=== PATIENT | male | born 2005 | race Caucasian/White ===

== ENCOUNTER 2024-10-07 15:07 | Emergency (ER) | payer OTHER ==
--- NOTE | 2024-10-07 15:28 | ERPHSYRPT ---
- History of Present Illness Time Seen by Provider: 10/07/24 15:28 Historian: patient, family Exam Limitations: no limitations Physician History: This is a 19-year-old white male patient arrives by private vehicle accompanied by his spouse because of the complaint of abdominal pain on the left side of his abdomen for 3 to 4 weeks. Patient states that he was seen at [facility] and told he had "blockages". He continues to have the left-sided abdominal pain. Patient has appointment to see mail clerk in November 2024. Patient has no chest pain. He is not short of breath Timing/Duration: week(s) (3 to 4 weeks), other (Symptoms persistent) Quality: aching Abdominal Pain Onset Location: LUQ, LLQ Pain Radiation: no radiation Severity of Pain-Max: moderate Severity of Pain-Current: moderate Modifying Factors: Improves With: nothing Associated Symptoms: denies symptoms Previous symptoms: same symptoms as today, recently seen, no recent treatment Allergies/Adverse Reactions: ondansetron [From Zofran] Allergy (Verified 10/07/24 15:34) Home Medications: No Reportable Medications [No Reported Medications] 10/07/24 [History] Travel Risk - International Travel Have you traveled outside of the country in past 3 weeks: No - Emerging Infectious Disease Are you exhibiting symptoms associated with any current EIDs: No - Review of Systems Constitutional: No Symptoms Eyes: No Symptoms Ears, Nose, & Throat: No Symptoms Respiratory: No Symptoms Cardiac: No Symptoms Abdominal/Gastrointestinal: Abdominal Pain Genitourinary Symptoms: No Symptoms Musculoskeletal: No Symptoms Skin: No Symptoms Neurological: No Symptoms Psychological: No Symptoms Endocrine: No Symptoms Hematologic/Lymphatic: No Symptoms Immunological/Allergic: No Symptoms All Other Systems: Reviewed and Negative - Past Medical History Pertinent Past Medical History: No - Nursing Vital Signs Nursing Vital Signs: Initial Vital Signs Temperature 96.7 F 10/07/24 15:22 Pulse Rate 97 H 10/07/24 15:22 Blood Pressure 138/92 10/07/24 15:22 O2 Sat by Pulse Oximetry 98 10/07/24 15:22 Pain Scale Pain Intensity 0 - Physical Exam General Appearance: no apparent distress, alert, anxiety Eye Exam: PERRL/EOMI, eyes nml inspection Ears, Nose, Throat Exam: normal ENT inspection, moist mucous membranes Neck Exam: normal inspection, non-tender, supple, full range of motion Respiratory Exam: normal breath sounds, lungs clear, airway intact, No chest tenderness, No respiratory distress Cardiovascular Exam: regular rate/rhythm, normal heart sounds, normal peripheral pulses Gastrointestinal/Abdomen Exam: soft, normal bowel sounds, tenderness (Left side to palpation), guarding (Left side to palpation) Rectal Exam: not done Back Exam: normal inspection, normal range of motion, No CVA tenderness, No vertebral tenderness Extremity Exam: normal inspection, normal range of motion, pelvis stable Neurologic Exam: alert, oriented x 3, cooperative, central office frame wirer II-XII nml as tested, nml cerebellar function, nml station & gait, sensation nml Skin Exam: normal color, warm, dry Lymphatic Exam: No adenopathy SpO2 Interpretation: normal O2 Delivery: Room Air Ordered Tests: Active Orders 24 hr Category Date Time Status IV Insertion STAT Care 10/07/24 16:22 Active ABDOMEN AND PELVIS W/0 CONTRAS [CT] Stat Exams 10/07/24 16:22 Completed AMYLASE Stat Lab 10/07/24 17:20 Completed CBC W DIFF Stat Lab 10/07/24 17:20 Completed CMP Stat Lab 10/07/24 17:20 Completed LIPASE Stat Lab 10/07/24 17:20 Completed UA W/RFX UR CULTURE Stat Lab 10/07/24 16:56 Completed Lab/Rad Data: Laboratory Result Diagrams 10/07/24 17:20 10/07/24 17:20 Laboratory Results 10/07/24 10/07/24 10/07/24 Range/Units 17:20 17:20 16:56 WBC 7.9 (4.23-9.07) x10^3/uL RBC 4.88 (4.63-6.08) x10^6/uL Hgb 15.1 (13.7-17.5) g/dL Hct 42.7 (40.1-51.0) % MCV 87.5 (79.0-92.2) fL MCH 30.9 (25.7-32.2) pg MCHC 35.4 (32.3-36.5) g/dL RDW 12.4 (11.6-14.4) % Plt Count 281 (163-337) x10^3/uL MPV 9.9 (9.4-12.4) fL Gran % 57.8 (34.0-67.9) % Immature Gran % (Auto) 0.4 (0.001-0.429) % Nucleat RBC Rel Count 0.0 (0.00-0.2) % Eos # (Auto) 0.18 (0.04-0.54) x10^3/uL Immature Gran # (Auto) 0.03 (0.001-0.031) x10^3u/L Absolute Lymphs (auto) 2.15 (1.32-3.57) x10^3/uL Absolute Monos (auto) 0.95 H (0.30-0.82) x10^3/uL Absolute Nucleated RBC 0.00 (0.00-0.012) x10^3u/L Lymphocytes % 27.1 (21.8-53.1) % Monocytes % 12.0 (5.3-12.2) % Eosinophils % 2.3 (0.8-7.0) % Basophils % 0.4 (0.2-1.2) % Absolute Granulocytes 4.58 (1.78-5.38) x10^3/uL Basophils # 0.03 (0.01-0.08) x10^3/uL Sodium 139 (135-145) mmol/L Potassium 3.7 (3.5-5.1) mmol/L Chloride 102 (98-107) mmol/L Carbon Dioxide 26 (22-30) mmol/L Anion Gap 14.3 (5-15) MEQ/L BUN 13 (9-20) mg/dL Creatinine 0.80 (0.66-1.25) mg/dL Estimated GFR 129.1 ML/MIN Glucose 89 (74-106) mg/dL Calcium 9.2 (8.4-10.2) mg/dL Total Bilirubin 0.50 (0.2-1.3) mg/dL AST 54 (17-59) U/L ALT 115 H (0-50) U/L Alkaline Phosphatase 40 (38-126) U/L Serum Total Protein 7.6 (6.3-8.2) g/dL Albumin 4.7 (3.5-5.0) g/dL Amylase 45 (30-110) U/L Lipase 38 (23-300) U/L Urine Color Yellow (Yellow) Urine Appearance Clear (Clear) Urine pH 5.5 (4.6-8.0) Ur Specific [place] >=1.030 A (1.005-1.030) Urine Protein Trace A (Negative) Urine Glucose (UA) Negative (Negative) mg/dL Urine Ketones Negative (Negative) Urine Blood Negative (Negative) Urine Nitrite Negative (Negative) Urine Bilirubin Negative (Negative) Urine Urobilinogen 1.0 A (0.2) mg/dL Ur Leukocyte Esterase Negative (Negative) U Hyaline Cast (Auto) NONE SEEN (0-2) /LPF Urine Microscopic RBC 0-2 (0-5) /HPF Urine Microscopic WBC 0-2 (0-5) /HPF Ur Epithelial Cells None Seen (None Seen) /HPF Urine Bacteria None Seen (None Seen) /HPF Urine Culture Reflexed NO (NO) - Progress Progress: pain not gone completely, re-examined Progress Note: 10/07/24 16:42 My medical decision making of the assignment of moderate complexity to this patient's medical issue today is based on review of the patient's past medical history, review of the patient's medication list, reviewed patient drug allergy list, history present illness and physical findings on examination. The workup in this patient includes placement of intravenous line, CBC, CMP, amylase, lipase, urinalysis, CT scan of the abdomen pelvis without contrast. Differential diagnosis includes but is not limited to pancreatitis, pyelonephritis, ureterolithiasis, colitis, abdominal wall pain 10/07/24 18:08 I interpreted the patient's laboratory data results. Based on the laboratory data results, there are no acute, emergent medical issues. The CT scan of the abdomen and pelvis without contrast was interpreted by the radiologist and I reviewed the impression. The impression states mid abdomen mesenteric adenitis. There is normal appendix. No free air and no free fluid Counseled pt/family regarding: lab results, diagnosis, need for follow-up, rad results Medical Desision Making - Independent Historian Additional History obtained from: Spouse - Diagnostic Testing Diagnostic test were ordered, analyzed, and reviewed by me: Yes Radiological Interpretation: Reviewed by me, Teleradiologist Report - Risk of complications Minimal Risk: Minimal risk of morbidity - Departure Departure Disposition: Home Clinical Impression: Mesenteric adenitis Condition: Stable Critical Care Time: No Referrals: DOCTOR,NO FAMILY [Primary Care Provider] - Follow up/PCP as directed Additional Instructions: Drink plenty of fluids. Use Tylenol and ibuprofen for pain control. Keep your appointment with your mail clerk in November 2024. Call your primary care provider on 10/10/2024, to make arrangements for follow-up appointment for further evaluation and management.
[2024-10-07 15:34] VITALS: TEMP 96.7
[2024-10-07 17:05] VITALS: PULSE 92; RESP 18
--- NOTE | 2024-10-07 17:16 | XRAY ---
Indication: Left abdominal pain 3-4 weeks. Multiple contiguous axial images obtained through abdomen and pelvis without contrast. Comparison: None Lung bases clear. Heart not enlarged. Stomach is distended with food/fluid. Noncontrasted stomach and bowel loops appear nonobstructed with normal appendix. Spleen is enlarged measuring 15.4 cm. Several centimeter/subcentimeter mid abdomen mesenteric nodes, favoring adenitis. No free fluid/air. Remaining liver, gallbladder, pancreas, spleen, adrenal glands, kidneys, ureters, bladder, and aorta are unremarkable for noncontrast exam. Osseous structures intact. Impression: Midabdomen mesenteric adenitis. Splenomegaly. Remaining CT abdomen/pelvis without contrast exam is negative.
[2024-10-07 17:23] LABS: Absolute Neutrophil Ct (ANC) 4.58 x10^3/uL (1.78-5.38); BASOPHIL % 0.4 % (0.2-1.2); Basophil (Absolute #) 0.03 x10^3/uL (0.01-0.08); Eosinophil % 2.3 % (0.8-7.0); Eosinophil (Absolute #) 0.18 x10^3/uL (0.04-0.54); Hematocrit 42.7 % (40.1-51.0); Hemoglobin 15.1 g/dL (13.7-17.5); IMMATURE GRAN # 0.03 x10^3u/L (0.001-0.031); IMMATURE GRAN % 0.4 % (0.001-0.429); Lymphocyte (Absolute #) 2.15 x10^3/uL (1.32-3.57); Lymphocytes % 27.1 % (21.8-53.1); Mean Cell Volume 87.5 fL (79.0-92.2); Mean Corpuscular Hemoglobin 30.9 pg (25.7-32.2); Mean Corpuscular Hgb Concent. 35.4 g/dL (32.3-36.5); Mean Platelet Volume 9.9 fL (9.4-12.4); Monocyte (Absolute #) 0.95 x10^3/uL (0.30-0.82); Neutrophil % 57.8 % (34.0-67.9); Platelet Count 281 x10^3/uL (163-337); Red Blood Count 4.88 x10^6/uL (4.63-6.08); Red Cell Distribution Width 12.4 % (11.6-14.4); White Blood Count 7.9 x10^3/uL (4.23-9.07)
[2024-10-07 17:38] LABS: ALBUMIN 4.7 g/dL (3.5-5.0); ANION GAP 14.3 MEQ/L (5-15); BILIRUBIN,TOTAL 0.5 mg/dL (0.2-1.3); Calcium 9.2 mg/dL (8.4-10.2); Creatinine 1 0.8 mg/dL (0.66-1.25); EST GLOMERULAR FILTRATION RATE 129.1 ML/MIN; Potassium 3.7 mmol/L (3.5-5.1); Total Protein 7.6 g/dL (6.3-8.2)
[2024-10-07 17:50] LABS: Appearance Clear (Clear); Bacteria None Seen /HPF (None Seen); Bilirubin Negative (Negative); Blood Negative (Negative); Epithelial Cells None Seen /HPF (None Seen); Glucose, Urine Negative (Negative); Hyaline Casts NONE SEEN /LPF (0-2); Ketones Negative (Negative); Leukocyte Esterase Negative (Negative); Nitrite Negative (Negative); Ph 5.5 (4.6-8.0); Protein,Urine Dip Trace (Negative); RBC 0-2 /HPF (0-5); Specific Gravity >=1.030 (1.005-1.030); WBC 0-2 /HPF (0-5)
[2024-10-07 18:03] VITALS: BP 157/97; O2SAT 96
== END 2024-10-07 18:21 | disposition home or self-care (01) ==
LOC: ED 15:07
DX: I88.0 Nonspecific mesenteric lymphadenitis (principal); R10.32 Left lower quadrant pain
CPT/HCPCS: 36415; 74176; 80053; 81001; 82150; 83690; 85025; 99284